=== PATIENT | male | born 1950 | race Caucasian/White ===

== ENCOUNTER 2021-05-29 07:03 | Outpatient (CLI) | payer MEDICARE ==
[~2021-05-29] VITALS: Ht 170.2 cm; Wt 87.3 kg
[2021-05-30] MEDS ORDERED: CHOL200014 PO (12:06)
[2021-05-30] MEDS ORDERED: ATOR20TA66 PO (12:06)
[2021-05-30] MEDS ORDERED: LEVO100C4 PO (12:06)
[2021-05-30] MEDS ORDERED: GLUC750C PO (12:06)
[2021-05-30] MEDS ORDERED: FOLI1TAB33 PO (12:06)
[2021-05-30] MEDS ORDERED: METH2.5T PO (12:06)
[2021-05-30] MEDS ORDERED: PANT40TA52 PO (12:06)
[2021-05-30] MEDS ORDERED: GABA300C PO (12:06)
[2021-05-30] MEDS ORDERED: OMEG100032 PO (12:06)
== END 2021-05-30 12:10 ==
LOC: PREOP 07:03
PROVIDERS: ATTEND Specialist
DX: Z01.818 Encounter for other preprocedural examination (principal)

== ENCOUNTER 2021-06-02 11:05 | Day surgery (SDC) | payer MEDICARE ==
[~2021-06-02] VITALS: Ht 170.2 cm; Wt 87.3 kg
[~2021-06-02 11:05] MED LIST: ATOR20TA66 PO; CHOL200014 PO; FOLI1TAB33 PO; GABA300C PO; GLUC750C PO; LEVO100C4 PO; METH2.5T PO; OMEG100032 PO; PANT40TA52 PO
[2021-06-02] MEDS ORDERED: LIDOCAINE PF 1% 2 ML VIAL IR PRN (11:15)
[2021-06-02] MEDS ORDERED: MOXIFLOXACIN OPHTH SOLN 5 MG/ML 0.3 ML SYRINGE OP ONE (11:15)
[2021-06-02] MEDS ORDERED: POVIDONE (BETADINE) OPHTH SOLN 5% 30 ML OP ONE (11:15)
[2021-06-02] MEDS ORDERED: TIMOLOL MALEATE 0.5% 5 ML (TIMOPTIC) BTL OU PRN (11:15)
[2021-06-02] MEDS: TETRACAINE 0.5% OPHTH SOLN 4 ML BTL (SINGLE DOSE ONLY) OU PRN ×4 (11:21→11:42)
[2021-06-02 11:22] VITALS: BP 137/90
[2021-06-02] MEDS: TROPICAMIDE 1% OPH SOLN (MYDRIACYL) 15 ML BTL OP SCH ×3 (11:30→11:43)
[2021-06-02] MEDS: PHENYLEPHRINE 10% OPHTH (NEO-SYN) 5 ML BTL OU SCH ×3 (11:30→11:43)
[2021-06-02] MEDS ORDERED: MIDAZOLAM 2 MG/2 ML (VERSED) VIAL ONE (12:09)
--- NOTE | 2021-06-02 12:27 | Ophthalmologist Pre-Op Note ---
Pre-Operative Progress Note H&P Reviewed The H&P was reviewed, patient examined and no changes noted. Date H&P Reviewed: Jun 02, 2021 Time H&P Reviewed: 12:27 Pre-Op Dx Cataract, Left Eye JUHI BERG MD Jun 02, 2021 12:27
--- NOTE | 2021-06-02 12:51 | Ophthalmology Operative Report ---
Cataract removal/placement IOL PREOPERATIVE DIAGNOSIS: Cataract Left Eye POSTOPERATIVE DIAGNOSIS: Cataract Left Eye PROCEDURE: Cataract removal and placement of posterior chamber implant, left eye SURGEON: Abe Berg ANESTHESIA: Topical with sedation COMPLICATIONS: None ESTIMATED BLOOD LOSS: Minimal DESCRIPTION OF PROCEDURE: After proper informed consent was obtained, the patient, a 70 male, was taken to the Operating Room and the left eye was anesthetized with tetracaine. The left eye was then prepped and draped in the usual manner. A wire lid speculum was placed. A paracentesis was made at the left hand position. Preservative free lidocaine was injected into the anterior chamber followed by viscoelastic. A clear corneal incision was made in the temporal position. A capsulorrhexis was preformed and the central nuclear and cortical material were removed. The posterior capsule was polished and an Gianni 22.0 AU00T0 was placed into the capsular bag. The residual viscoelastic was aspirated and balanced saline solution was injected into the anterior chamber. Moxifloxacin was injected into the anterior chamber. The wound was checked and found to be water tight. The patient tolerated the procedure well without complications. ABE BERG MD Jun 02, 2021 12:51
[2021-06-02 12:58] VITALS: BP 131/79
[2021-06-02] MEDS ORDERED: acetaZOLAMIDE ER 500 MG CAP (DIAMOX SEQUELS) PO ONE (13:30)
--- NOTE | 2021-06-02 13:58 | Anesthesia-General Post-Op ---
MAC Patient Condition Mental Status/LOC: Same as Preop Cardiovascular: Satisfactory Nausea/Vomiting: Absent Respiratory: Satisfactory Pain: Controlled Complications: Absent Post Op Complications Complications None Follow Up Care/Instructions Patient Instructions None needed. Anesthesiology Discharge Order Discharge Order Patient was seen after the procedure and he was doing well, no complaints, stable vital signs, no apparent adverse anesthesia problems. KOBY ALEXIS DO Jun 02, 2021 13:58
== END 2021-06-02 12:58 | disposition home or self-care (01) ==
LOC: SDC 11:05
PROVIDERS: ATTEND Specialist
DX: H25.12 Age-related nuclear cataract, left eye (principal); K21.9 Gastro-esophageal reflux disease without esophagitis; M19.90 Unspecified osteoarthritis, unspecified site; H35.30 Unspecified macular degeneration; Z79.899 Other long term (current) drug therapy
CPT/HCPCS: 66984; V2632

== ENCOUNTER 2021-06-16 10:49 | Day surgery (SDC) | payer MEDICARE ==
[~2021-06-16] VITALS: Ht 170.2 cm; Wt 87.3 kg
[2021-06-16] MEDS ORDERED: MOXIFLOXACIN OPHTH SOLN 5 MG/ML 0.3 ML SYRINGE OP ONE (11:00)
[2021-06-16] MEDS ORDERED: LIDOCAINE PF 1% 2 ML VIAL IR PRN (11:00)
[2021-06-16] MEDS ORDERED: TIMOLOL MALEATE 0.5% 5 ML (TIMOPTIC) BTL OU PRN (11:00)
[2021-06-16] MEDS ORDERED: POVIDONE (BETADINE) OPHTH SOLN 5% 30 ML OP ONE (11:00)
[2021-06-16] MEDS: TETRACAINE 0.5% OPHTH SOLN 4 ML BTL (SINGLE DOSE ONLY) OU PRN ×4 (11:01→11:20)
[2021-06-16] MEDS: TROPICAMIDE 1% OPH SOLN (MYDRIACYL) 15 ML BTL OP SCH ×3 (11:10→11:21)
[2021-06-16] MEDS: PHENYLEPHRINE 10% OPHTH (NEO-SYN) 5 ML BTL OU SCH ×3 (11:10→11:21)
[2021-06-16 11:17] VITALS: BP 130/83
[2021-06-16] MEDS ORDERED: MIDAZOLAM 2 MG/2 ML (VERSED) VIAL ONE (11:26)
--- NOTE | 2021-06-16 11:44 | Ophthalmologist Pre-Op Note ---
Pre-Operative Progress Note H&P Reviewed The H&P was reviewed, patient examined and no changes noted. Date H&P Reviewed: Jun 16, 2021 Time H&P Reviewed: 11:44 Pre-Op Dx Cataract, Right Eye JUHI BERG MD Jun 16, 2021 11:44
--- NOTE | 2021-06-16 12:09 | Ophthalmology Operative Report ---
Cataract removal/placement IOL PREOPERATIVE DIAGNOSIS: Cataract Right Eye POSTOPERATIVE DIAGNOSIS: Cataract Right Eye PROCEDURE: Cataract removal and placement of posterior chamber implant, right eye SURGEON: Abe Berg ANESTHESIA: Topical with sedation COMPLICATIONS: None ESTIMATED BLOOD LOSS: Minimal DESCRIPTION OF PROCEDURE: After proper informed consent was obtained, the patient, a 70 male, was taken to the Operating Room and the right eye was anesthetized with tetracaine. The right eye was then prepped and draped in the usual manner. A wire lid speculum was placed. A paracentesis was made at the left hand position. Preservative free lidocaine was injected into the anterior chamber followed by viscoelastic. A clear corneal incision was made in the temporal position. A capsulorrhexis was preformed and the central nuclear and cortical material were removed. The posterior capsule was polished and Gianni AU00T0 21.5 IOL was placed into the capsular bag. The residual viscoelastic was aspirated and balanced saline solution was injected into the anterior chamber. Moxifloxacin was injected into the anterior chamber. The wound was checked and found to be water tight. The patient tolerated the procedure well without complications. ABE BERG MD Jun 16, 2021 12:09
[2021-06-16 12:18] VITALS: BP 132/77
[2021-06-16] MEDS ORDERED: acetaZOLAMIDE ER 500 MG CAP (DIAMOX SEQUELS) PO ONE (12:30)
--- NOTE | 2021-06-16 14:09 | Anesthesia-General Post-Op ---
MAC Patient Condition Mental Status/LOC: Same as Preop Cardiovascular: Satisfactory Nausea/Vomiting: Absent Respiratory: Satisfactory Pain: Controlled Complications: Absent Post Op Complications Complications None Follow Up Care/Instructions Patient Instructions None needed. Anesthesiology Discharge Order Discharge Order Patient was seen after the procedure and he was doing well, no complaints, stable vital signs, no apparent adverse anesthesia problems. KOBY ALEXIS DO Jun 16, 2021 14:09
== END 2021-06-16 12:20 ==
LOC: SDC 10:49
PROVIDERS: ATTEND Specialist
DX: H25.11 Age-related nuclear cataract, right eye (principal); E78.5 Hyperlipidemia, unspecified; K21.9 Gastro-esophageal reflux disease without esophagitis; M19.90 Unspecified osteoarthritis, unspecified site; Z79.899 Other long term (current) drug therapy; Z80.9 Family history of malignant neoplasm, unspecified
CPT/HCPCS: 66984; V2632